=== PATIENT | female | born 1965 ===

== ENCOUNTER 2019-05-08 08:13 | Day surgery (SDC) | payer BC, MEDICAID ==
[~2019-05-08] VITALS: Ht 167.6 cm; Wt 68.0 kg
[2019-05-08] VITALS (8 sets, daily range): BP systolic 135–152; BP diastolic 79–94
[2019-05-08] MEDS ORDERED: NKM (08:47)
--- NOTE | 2019-05-08 08:58 | Anethesia Preoperative Eval ---
Anesthesia Pre-op PMH/ROS General Date of Evaluation: May 08, 2019 Time of Evaluation: 08:56 Anesthesiologist: je ASA Score: ASA 2 Mallampati Score Class I : Soft palate, uvula, fauces, pillars visible Class II: Soft palate, uvula, fauces visible Class III: Soft palate, base of uvula visible Class IV: Only hard plate visible Mallampati Classification: Class II Surgeon: anshul Diagnosis: colon screening Surgical Procedure: colonoscopy Anesthesia History: none Social History: smoking - nonsmoker Family History: no anesthesia problems Allergies: Coded Allergies: No Known Allergies (Unverified , 05/07/19) Medications: see eMAR Patient NPO?: Yes Past Medical History Cardiovascular: Reports: arrhythmia - sinus bradycardia Anesthesia Pre-op Phys. Exam Physician Exam Last Vital Signs Date Time Temp Pulse Resp B/P (MAP) Pulse Ox O2 Delivery O2 Flow Rate FiO2 05/08/19 08:50 97.7 59 18 145/79 100 Room Air Constitutional: NAD Neurologic: CN 2-12 intact Cardiovascular: RRR Respiratory: CTA Gastrointestinal: S/NT/ND Airway Exam Mallampati Score: Class II MO: full Neck: flexible TMD: 2fb ROM: full Anesthesia Pre-op A/P Studies Pre-op Studies: EKG - sinus bradycardia Risk Assessment & Plan Assessment: asa2 Plan: mac Status Change Before Surgery: No Pre-Antibiotics Drug: Isabel Doan MD May 08, 2019 08:58
--- NOTE | 2019-05-08 09:27 | Pre-Procedure Note/Attestation ---
Pre-Procedure Note/Attestation Complete Prior to Procedure Procedure Narrative: colonoscopy Indications for Procedure Pre-Operative Diagnosis: screening Attestation I attest that I discussed the nature of the procedure; its benefits; risks and complications; and alternatives (and the risks and benefits of such alternatives ), prior to the procedure, with the patient (or the patient's legal authorization representative). I attest that, if there was a reasonable possibility of needing a blood transfusion, the patient (or the patient's legal authorization representative) was given the [facility] standardized written summary, pursuant to the Alireza Suraj Blood Safety Act ([place] Health and Safety Code # 1645, as amended). I attest that I re-evaluated the patient just prior to the surgery and that there has been no change in the patient's H&P, except as documented below: Robert Muller MD May 08, 2019 09:27
--- NOTE | 2019-05-08 09:28 | Short Stay Surgery H&P ---
History of Present Illness History of Present Illness Chief Complaint screening colon HPI Nan Covarrubias is a 53 year old female who was admitted on for Screening Patient History Allergies: Coded Allergies: No Known Allergies (Unverified , 05/07/19) Medication History Scheduled No Known Medications* (NKM - No Known Medications*), 0 ., (Reported) Review of Systems Cardiovascular: Reports: no symptoms Respiratory: Reports: no symptoms Skeletal: Reports: no symptoms Gastrointestinal: Reports: no symptoms Genitourinary: Reports: no symptoms Neurologic: Reports: no symptoms Endocrine: Reports: no symptoms Hematologic: Reports: no symptoms Physical Exam Vital Signs Last Vital Signs Date Time Temp Pulse Resp B/P (MAP) Pulse Ox O2 Delivery O2 Flow Rate FiO2 05/08/19 08:50 97.7 59 18 145/79 100 Room Air Skin: normal HENT: normal Heart: normal Lungs: normal Abdomen: normal Extremities: normal Plan Plan of Care colonoscopy Attestation Are the patient's medical conditions optimized for surgery? Attestation Response: yes Robert Muller MD May 08, 2019 09:28
[2019-05-08] MEDS ORDERED: Midazolam 2mg/2ml Inj IVP PRN (09:45)
[2019-05-08] MEDS ORDERED: DiphenhydrAMINE 50mg/ml Inj IVP PRN (09:45)
[2019-05-08] MEDS ORDERED: Atropine Inj 1mg/10ml Syr IV PRN (09:45)
[2019-05-08] MEDS ORDERED: fentaNYL 100 mcg/2 mL IV PRN (09:45)
[2019-05-08] MEDS ORDERED: Lidocaine 1% MPF 10mg/ml 5ml ONE (10:00)
[2019-05-08] MEDS ORDERED: Propofol 200mg/20ml IV ONE (10:00)
--- NOTE | 2019-05-08 10:43 | Immediate Post-Op Evaluation ---
Immediate Post-Op Evalulation Immediate Post-Op Evalulation Procedure: colonoscopy w/bx Date of Evaluation: May 08, 2019 Time of Evaluation: 10:43 IV Fluids: 400ml 0.9ns Blood Products: none Estimated Blood Loss: negligible Blood Pressure Systolic: 135 Blood Pressure Diastolic: 81 Pulse Rate: 56 Respiratory Rate: 18 O2 Sat by Pulse Oximetry: 100 Temperature (Fahrenheit): 97.0 Pain Score (1-10): 0 Nausea: No Vomiting: No Complications none Patient Status: awake, reacts, patent Hydration Status: adequate Drug: Isabel Doan MD May 08, 2019 10:43
--- NOTE | 2019-05-08 10:46 | 48 Hour Post Anesthesia Eval ---
Post Anesthesia Evaluation Procedure: colonoscopy w/bx Date of Evaluation: May 08, 2019 Time of Evaluation: 10:45 Blood Pressure Systolic: 135 0: 81 Pulse Rate: 55 Respiratory Rate: 18 Temperature (Fahrenheit): 97.0 O2 Sat by Pulse Oximetry: 100 Airway: patent Nausea: No Vomiting: No Pain Intensity: 0 Hydration Status: adequate Cardiopulmonary Status: stable Mental Status/LOC: patient returned to baseline Post-Anesthesia Complications: none Follow-up care needed: N/A Isabel Orlando MD May 08, 2019 10:46
--- NOTE | 2019-05-08 11:59 | Endoscopy Procedure Note ---
Endoscopy Procedure Note General Indication for Procedure: screening Procedures Performed: colonoscopy Operative Findings/Diagnosis: one polyp Specimen: yes Pt Tolerated Procedure Well: Yes Estimated Blood Loss: none Anesthesia Anesthesiologist: je Anesthesia: MAC Inserted Devices Implant(s) used?: No Quality Quality of Bowel Preparation: Good Did scope reach the cecum?: Yes Was there any complications?: No GI Core Measures 50 yrs or older w/o bx or poly: No 10yrs. F/U recommended: Yes If not recommended, why?: Above average risk 18 years or older w/prev. colo: No Robert Muller MD May 08, 2019 11:59
--- NOTE | 2019-05-08 18:45 | Procedure Note ---
DATE OF PROCEDURE: 05/08/2019 SURGEON: Robert Muller M.D. PROCEDURE: Colonoscopy with biopsy. ANESTHESIA: Per Dr. Isabel Orta. INSTRUMENT: Olympus adult flexible colonoscope. INDICATION: Screening colonoscopy. REASON FOR PROCEDURE: The procedure, risks, benefits, and possible consequences, including hemorrhage, aspiration, perforation and infection, and alternative treatments, were explained to the patient/legal guardian by Dr. Robert Muller and the patient/legal guardian understood and accepted these risks. PROCEDURE IN DETAIL: After informed consent was obtained and the patient was adequately sedated, first rectal exam was performed, which was normal. Then, the scope was advanced from the rectum into the cecum and then subsequently into the terminal ileum. Quality of prep was good. The patient had significant melanosis coli throughout the colon. The colonic mucosa was completely black in most part of the colon. There was one polyp in the transverse colon, measured roughly about 3 to 4 mm removed with cold biopsy forceps technique. The rest of the examination was grossly within normal limits. Retroflexion of rectum showed evidence of small non-bleeding internal hemorrhoids. SUMMARY OF FINDINGS: 1. Significant melanosis coli. 2. One polyp in the transverse colon, status post removal with cold biopsy forceps technique. 3. Internal hemorrhoids. RECOMMENDATIONS: 1. Follow up pathology. 2. The patient to come back to the office to discuss about melanosis coli. 3. Repeat colonoscopy in 5 years. Robert Muller M.D. DR: MESSI JOB#: [id number] CC:
== END 2019-05-08 11:45 | disposition home or self-care (01) ==
LOC: GAS 08:13
DX: Z12.11 Encounter for screening for malignant neoplasm of colon (principal); K63.5 Polyp of colon; K64.8 Other hemorrhoids; B96.89 Other specified bacterial agents as the cause of diseases classified elsewhere
CPT/HCPCS: 45380; 93005; J2704; 94003; 94150